=== PATIENT | female | born 1965 | race Caucasian/White ===

== ENCOUNTER 2022-04-03 10:12 | Day surgery (SDC) | payer OTHER ==
[~2022-04-03] VITALS: Ht 157.5 cm; Wt 83.0 kg
[2022-04-03] MEDS ORDERED: LIDOCAINE 2% 100 MG/5 ML UJET TP ONE (13:19)
[2022-04-03] MEDS ORDERED: fentaNYL citrate 0.05 MG/ML VIAL ONE (13:19)
[2022-04-03] MEDS ORDERED: fentaNYL citrate 0.05 MG/ML VIAL IVP ONE (14:40)
== END 2022-04-03 14:35 | disposition home or self-care (01) ==
LOC: MDS 10:12 → MMU 11:12 → MDS 14:35
PROVIDERS: ATTEND Internal Medicine Gastroenterology
DX: Z12.11 Encounter for screening for malignant neoplasm of colon (principal); K57.30 Diverticulosis of large intestine without perforation or abscess without bleeding; I10 Essential (primary) hypertension; E78.00 Pure hypercholesterolemia, unspecified; E11.9 Type 2 diabetes mellitus without complications; Z79.01 Long term (current) use of anticoagulants; Z20.822 Contact with and (suspected) exposure to COVID-19; Z79.84 Long term (current) use of oral hypoglycemic drugs; Z79.899 Other long term (current) drug therapy
CPT/HCPCS: 45378; 87426; J3010